=== PATIENT | female | born 1995 | race African-American/Black ===

== ENCOUNTER 2022-03-30 13:21 | Emergency (ER) | payer MEDICAID ==
[~2022-03-30] VITALS: Ht 170.2 cm; Wt 57.6 kg
[2022-03-30 13:31] VITALS: BP 105/73
--- NOTE | 2022-03-30 13:31 | NUR ---
BIBS C/O SORETHROAT X 2 DAYS
[2022-03-30] MEDS ORDERED: PRED50TA PO (13:37)
--- NOTE | 2022-03-30 14:38 | NUR ---
Patient discharged to home in stable condition. Written and verbal after care instructions given. Patient verbalizes understanding of instruction.
== END 2022-03-30 14:39 | disposition home or self-care (01) ==
LOC: ER 13:24
DX: K12.1 Other forms of stomatitis (principal); Z60.2 Problems related to living alone; Z79.899 Other long term (current) drug therapy